=== PATIENT | female | born 1975 | race African-American/Black ===

== ENCOUNTER 2017-01-24 15:39 | Emergency (ER) | payer MEDICAID, MEDICARE ==
[~2017-01-24] VITALS: Ht 165.1 cm; Wt 53.0 kg
[~2017-01-24 15:39] MED LIST: LEVO50TA PO
[2017-01-24] MEDS ORDERED: IBUPROFEN 600MG TABLET PO ONE (19:15)
[2017-01-24 19:25] VITALS: BP 132/56
== END 2017-01-24 20:41 | disposition home or self-care (01) ==
LOC: ER 15:39
DX: S90.31XA Contusion of right foot, initial encounter (principal); W20.8XXA Other cause of strike by thrown, projected or falling object, initial encounter; Y93.89 Activity, other specified; Y92.512 Supermarket, store or market as the place of occurrence of the external cause
CPT/HCPCS: 73630; 81025; 99284; Z7610

== ENCOUNTER 2017-12-08 21:46 | Emergency (ER) | payer MEDICARE | END 2017-12-08 22:00 | disposition left against medical advice (07) | LOC: ER 21:46 | DX: Z53.21 Procedure and treatment not carried out due to patient leaving prior to being seen by health care provider (principal) ==